=== PATIENT | female | born 1950 | race Caucasian/White ===

== ENCOUNTER → 2016-08-28 | Outpatient (CLI) | payer OTHER ==
[2016-08-28 16:42] LABS: THYROID STIMULATING HORMONE < 0.015 uIU/mL (0.465-4.680)
== END ==
LOC: COL.LAB 14:37
PROVIDERS: Family Medicine
DX: E03.8 Other specified hypothyroidism (principal)

== ENCOUNTER → 2017-02-20 | Outpatient (REF) | LOC: WSOH 10:45 | DX: Z02.89 Encounter for other administrative examinations (principal) ==

== ENCOUNTER → 2020-08-08 | Outpatient (REF) | LOC: WSOH 15:14 | DX: Z02.89 Encounter for other administrative examinations (principal); F40.240 Claustrophobia; T78.40XA Allergy, unspecified, initial encounter; R06.2 Wheezing; M79.89 Other specified soft tissue disorders; R03.0 Elevated blood-pressure reading, without diagnosis of hypertension ==